=== PATIENT | male | born 1960 | race Caucasian/White ===

== ENCOUNTER 2019-05-27 20:06 | Inpatient (IN) | payer BC ==
[~2019-05-27] VITALS: Ht 172.7 cm; Wt 91.6 kg
[2019-05-27 21:08] VITALS: Ht 172.7 cm; Wt 91.6 kg
--- NOTE | 2019-05-27 22:09 | NUR ---
PT. PRESENTS TO ER C/O RLQ PAIN, 12/18, PT. STS HE CANNOT DESCRIBE PAIN, "IT JUST HURTS" WITH N/V/D FOR 1 WEEK, PT. LAYING IN BED, AAOX4, CALM, SLOW TO ANSWER, BROTHER STS HE HAS HAD BRAIN SURGERY 2 YRS, REMOVAL OF TUMOR ON RIGHT TEMPORAL LOBE, BROTHER ALSO STS, PT. HAS HAD INTERMITENT RECTAL BLEEDING FOR 1 MONTH, PT. HAS A SCHEDULED COLONOSCOPY THIS MONTH, PT. DENIES RECTAL BLEEDING AT THIS TIME, PT. PLACED ON CM + PULSE OX, REPOSITIONED FOR COMFORT, SAFETY PRECAUTIONS IN PLACE, WILL MONITOR.
[2019-05-27 22:33] LABS: BASOPHIL % 0.5 % (0-2); PLATELET COUNT 306 x10^3mcL (130-400)
[2019-05-27 22:36] LABS: RED CELL DISTRIBUTION WIDTH 15.8 % (11.5-14.5)
[2019-05-27 22:43] LABS: CALCIUM 9.1 mg/dL (8.5-10.1); CARBON DIOXIDE 26.6 mmol/L (21-32); CHLORIDE SERUM 92 mmol/L (98-107); CREATININE SERUM 1.2 mg/dL (0.7-1.3); GFR1 > 60 mL/min; GLUCOSE SERUM 312 mg/dL (74-106); POTASSIUM SERUM 3.4 mmol/L (3.5-5.1); SODIUM SERUM 129 mmol/L (136-145)
[2019-05-27 22:47] LABS: ALKALINE PHOSPHATASE 208 U/L (46-116); ALT/SGPT 76 U/L (16-63); AST/SGOT 79 U/L (15-37); BILIRUBIN TOTAL 2.96 mg/dL (0.20-1.00); TOTAL PROTEIN, SERUM 7.1 g/dL (6.4-8.2)
--- NOTE | 2019-05-27 22:54 | NUR ---
MEDICATED PT. PER MD ORDER, PT. TOLERATED WELL, SEE EMAR
--- NOTE | 2019-05-27 23:17 | NUR ---
LAB AT BEDSIDE
--- NOTE | 2019-05-28 00:24 | NUR ---
PT. LAYING IN BED, AAOX4, SLOW TO ANSWER, NO ACUTE DISTRESS NOTED, REPOSITIONED PT FOR COMFORT, STS HE NO LONGER HAS PAIN 0/10, MEDICATION HELPED, PENDING RESULTS, VSS, WILL MONITOR
--- NOTE | 2019-05-28 01:00 | NUR ---
PT TAKEN TO CT.
--- NOTE | 2019-05-28 01:15 | NUR ---
PT. RETURNED FROM CT
--- NOTE | 2019-05-28 02:32 | NUR ---
REPORT GIVEN TO BRITTANY CARMONA, UPDATED PT. WITH POC,
[2019-05-28 03:18] VITALS: BP 94/69
--- NOTE | 2019-05-28 03:37 | NUR ---
ADMITTED A 59 YEARS OLD MALE AWAKE, ALERT AND ORIENTED, CAME IN VIA GURNEY ACCOMPANIED BY ER STAFF WITH C/O GENRALIZED BODY WEAKNESS, NAUSEA AND VOMITING, RIGHT LOWER QUADRANT PAIN. MEDICATED IN ER WITH TORADOL 15MG IVP AND ZOFRAN 4MG IVP. PER PATIENT PAIN LEVEL NOW IS 0/10 AFTER MEDS GIVEN. KEPT IN COMFORT AND ORIENTED TO ROOM AND DEVICES. TELE# 1 [address] 110 ON MONITOR, DENIES CHESTPAIN. ABDOMEN ROUND ,FIRM AND TENDER WITH ACTIVE BS, PITTING EDEMA 1+ NOTED TO BLE. IV TO LAC INTACT AND PATENT. WITH ADMISSION ORDERS TO CARRY OUT. WILL CONTINUE TO MONITOR. CALL LIGHT WITHIN REACH.
[2019-05-28 04:20] LABS: FREE T4 0.82 ng/dL (0.76-1.46); FREE THYROXINE INDEX 1.9 ug/dL (1.4-4.5); T3 TOTAL 0.74 ng/mL
--- NOTE | 2019-05-28 07:45 | NUR ---
PATIENT BACK FROM BATHROOM, NO COMPLAIN. WALK W/ SLWO STEADY GAIT NOTED. NO REPORT OF PAIN AT THIS TIME. PT REPORT HAS BM X1 AFTER LACTULOSE GIVEN PREVIOUS SHIFT. REMIND PATIENT TO VOID IN CUP FOR URINE SPECIMENS. PT VERBALIZE UNDERSTAND. CALL LIGHT WITHIN REACH. TELE #[address] 120 NOTED. CONT TO MONITOR.
[2019-05-28 08:23] VITALS: BP 98/65
[2019-05-28 08:29] LABS: BASOPHIL % 0.4 % (0-2); PLATELET COUNT 311 x10^3mcL (130-400)
[2019-05-28 08:32] LABS: RED CELL DISTRIBUTION WIDTH 15.7 % (11.5-14.5)
--- NOTE | 2019-05-28 09:05 | NUR ---
PATIENT IS LAYING IN BED ,COMFORTABLE, AWAKE AND ALERT. EXPLAINED TO PATIENT HIS MORNING MEDICATION. LACTULOSE GIVEN. PATIENT TOLERATED. CALL LIGHT IS IN PLACE AND WITHIN REACH. IV IS INTACT AND PATENT.
[2019-05-28 09:48] LABS: CALCIUM 9.1 mg/dL (8.5-10.1); CARBON DIOXIDE 25.9 mmol/L (21-32); CHLORIDE SERUM 95 mmol/L (98-107); CREATININE SERUM 1.3 mg/dL (0.7-1.3); GFR1 > 60 mL/min; GLUCOSE SERUM 197 mg/dL (74-106); MAGNESIUM 1.6 mg/dL (1.8-2.4); PHOSPHOROUS 2.7 mg/dL (2.5-4.9); POTASSIUM SERUM 4.2 mmol/L (3.5-5.1); SODIUM SERUM 133 mmol/L (136-145)
--- NOTE | 2019-05-28 11:29 | NUR ---
SPOKE US TECH CAT REGARD TO US ABDOMEN IS COMPLETED BUT WAITING FOR RESULTS.
[2019-05-28 11:45] VITALS: BP 100/66
--- NOTE | 2019-05-28 12:10 | NUR ---
PER PT PATIENT WALKING ABOUT 100 FEET MIN ASSIST W/ STEADY GAIT, WILL CONT TX X3. PATIENT RESTING COMFORTABLE IN BED AFTER PT. CALL LIGHT WITHIN REACH.
--- NOTE | 2019-05-28 13:40 | NUR ---
MAGNESIUM TABLET GIVEN. PATIENT HAS NO SUBJECTIVE COMPLAINTS. EDUCATED ON MAGNESIUM REPLACEMENT. MG 1.6. REPLACED NEW BAG OF IV FLUID. NEED ATTENDED. CALL LIGHT WITHIN REACH.
--- NOTE | 2019-05-28 14:18 | NUR ---
SPOKE TO DR. CAPPS PATIENT'S URINE OUTPUT 150ML ALO COLOR AND BLADDER SACN SHOWS 36ML PATIENT DENIES PAIN OR PRESSURES WHEN PRESS ON BLADDER, PER DR. CAPPS WILL SEE PATIENT AND ASSESS.
--- NOTE | 2019-05-28 15:50 | NUR ---
PATIENT DECIDED TO TAKE MIRALAX, SENNOKOT AND LACTULOSE. MEDICATIONS GIVEN . PATIENT TOLERATED WELL. NEEDS MET. 2 GUARDS AT BEDSIDE. CALL LIGHT WITHIN REACH.
[2019-05-28 16:14] VITALS: BP 102/66
--- NOTE | 2019-05-28 16:27 | NUR ---
INFORMED PATIENT ON PROCEDURE, REASON FOR THOMAS CATHETERIZATION. CATHETERIZATION DONE UNDER STERILE TECHNIQUE. PATIENT TOLERATED WELL. CATHETER SECURE AND TO GRAVITY DRAIN. URINE SPECIMEN COLLECTED, DARK ALO ABOUT 60CC NOTED AND SENT TO LAB FOR UA AND UDS. CALL LIGHT WITHIN REACH. NEEDS MET.
[2019-05-28 16:35] LABS: microscopic required? YES; urine erythrocyte NEGATIVE (NEGATIVE)
[2019-05-28 16:44] LABS: AMPHETAMINE QUAL UR NONE DETECTED (See below)
--- NOTE | 2019-05-28 18:42 | NUR ---
PATIENT AWAKE SITTING UP IN BED EATING. BROTHER IN BEDSIDE UPDATED ABOUT ULTRASOUND.
--- NOTE | 2019-05-28 18:47 | NUR ---
SPOKE TO DR. CAPPS REGARD TO URINE OUTPUT 210ML DARK ALO AND LEFT THOMAS CATHETER TO MONITOR URINE OUTPUT, PER DR. JEFRY EUGENE TO KEEP IT IN.
--- NOTE | 2019-05-28 19:30 | NUR ---
PT RECEIVED FROM DAY NURSE. PT RESTING IN BED AT THIS TIME. DENIES PAIN OR DISCOMFORT. A/O X4, SLOW TO RESPOND. TELE 1, NSR. DENIES CP, NV, DIZZINESS, AND PALPATATIONS. PALPABLE PULSES, NO EDEMA NOTED AT THIS TIME. BREATHING E/U ON RA. DENIES SOB. ABD FIRM AND DISTENDED, DENIES PAIN TO PALPATION. THOMAS IN PLACE, DRAINING TO GRAVITY. ALO COLORED URINE NOTED. GENERALIZED WEAKNESS, AMBULATORY AT BASELINE. IV IT LAC INTACT AND INFUSING. BED AT LOWEST POSITION. CALL LIGHT WITHIN REACH. WILL CONTINUE TO MONITOR.
[2019-05-28 19:43] LABS: CALCIUM 8.8 mg/dL (8.5-10.1); CARBON DIOXIDE 27.4 mmol/L (21-32); CHLORIDE SERUM 95 mmol/L (98-107); CREATININE SERUM 1.1 mg/dL (0.7-1.3); GFR1 > 60 mL/min; GLUCOSE SERUM 228 mg/dL (74-106); POTASSIUM SERUM 3.5 mmol/L (3.5-5.1); SODIUM SERUM 131 mmol/L (136-145)
[2019-05-28 21:17] VITALS: BP 95/76
--- NOTE | 2019-05-29 | NUR ---
PT RESTING IN BED AT THIS TIME. NO S/S OF PAIN OR DISTRESS NOTED. BREATHING E/U ON RA. NO SIGNS OF ACUTE DISTRESS AT THIS TIME. BED AT LOWEST POSITION. CALL LIGHT WITHIN REACH. WILL CONTINUE TO MONITOR.
[2019-05-29 05:28] VITALS: BP 108/69
--- NOTE | 2019-05-29 06:00 | NUR ---
PT RESTING IN BED AT THIS TIME. DENIES PAIN OR DISCOMFORT. BREATHING E/U ON RA. NO SIGNS OF ACUTE DISTRESS NOTED AT THIS TIME. ALL NEEDS AND CONCERNS ADDRESSED THIS SHIFT. WILL ENDORSE TO DAY NURSE.
[2019-05-29 06:52] LABS: BASOPHIL % 0.1 % (0-2); PLATELET COUNT 281 x10^3mcL (130-400)
--- NOTE | 2019-05-29 07:00 | NUR ---
RECEIVED PT FROM INJECTION MOULDING MACHINE OPERATOR NURSE. PT RESTING IN BED, AOX4, RESP E/U ON RA. C/O SLIGHT DISCOMFORT TO THOMAS CATH SITE. CATH IN PLACE W/ NO BLEEDING, SWELLING OR REDNESS TO SITE, EXPLAINED TO PT NOT TO TUG ON LINE AND SOME PRESSURE IS EXPECTED WHILE CATH IS IN PLACE. PT UNDERSTOOD. ON TELE 1 SHOWING NSR, HR: 98. IV TO LAC W/ NO SIGNS OF INFILTRATION, IVF INFUSING WELL. BED IN LOWEST POSITION AND CALL LIGHT WITHIN REACH. WILL CONTINUE TO MONITOR.
[2019-05-29 07:15] LABS: CALCIUM 9.1 mg/dL (8.5-10.1); CARBON DIOXIDE 29.5 mmol/L (21-32); CHLORIDE SERUM 101 mmol/L (98-107); CREATININE SERUM 1.1 mg/dL (0.7-1.3); GFR1 > 60 mL/min; GLUCOSE SERUM 226 mg/dL (74-106); MAGNESIUM 1.9 mg/dL (1.8-2.4); POTASSIUM SERUM 4.4 mmol/L (3.5-5.1); SODIUM SERUM 135 mmol/L (136-145)
[2019-05-29 08:18] LABS: RED CELL DISTRIBUTION WIDTH 15.9 % (11.5-14.5)
[2019-05-29 09:32] VITALS: BP 114/77
--- NOTE | 2019-05-29 12:26 | NUR ---
PT THOMAS CATHETER REMOVED AT THIS TIME ORDERED PER MD. NO PENILE BLEEDING OR SCROTAL ERYTHEMA/EDEMA NOTED, PT DENIES PAIN. NO ACUTE DISTRESS NOTED. BED IN LOWEST POSITION AND CALL LIGHT WITHIN REACH. WILL CONTINUE TO MONITOR.
[2019-05-29 12:52] VITALS: BP 113/80
--- NOTE | 2019-05-29 13:21 | NUR ---
Initial Nutrition Assessment: Dx: generalized weakness x 2 weeks ago, hepatic encephalopathy PMHx: HTN, DM, hypercholesterolemia, r-frontal meningioma s/p resection PSHx: brain tumor removal from rt temporal area Labs: (05/29) Na 135 L, K 4.4, Glu 226 H, BUN 6.0, Cr 1.1, A1c 8.1 H, H/H 13.3/39 Meds: Colace, klor-con, lactulose, magOx, norco, sodium chl 0.9%, Tylenol, Zofran Diet: CCH PO intake since admission: (05/28) B: 70%, L: 100%, D: 100%; overall av%; likely adequate. Ht: 172.72 cm / 68 inches / 5'8" Wt: 91.626 kg / 201 pounds BMI: 30.7 kg/m2, obesity class 1 IBW: 154 pounds / 70 kg %IBW: 130% AdjBW: 166 pounds / 75 kg UBW: 225 pounds Age: 59 Food Allergies: No Known Food Allergies Skin: Intact Damon: 18 Edema: None GI: abd round firm, distended with active BS. c/o rt lower quadrant pain, N/V. Last BM: 05/28/19, formed RD Note (05/29): Per H&P, Pt reports not eating well and decreased bowel movement x 1 week. Per MD Progress Note, CT abd shows diverticulosis with large fatty liver. RDN visited with Pt. Pt was awake, alert, and in good spirits. Pt answered all of RDN's questions with extensive explanation. RDN answered all of Pt's questions to Pt's satisfaction. See below for detail of DM diet education provided. Problem with: N/V/D/C: None Problems with: Chewing: No Swallowing: No Current appetite: Good Recent wt change: None Vitamin/Supplement use: multi-vitamin from [employer] Special diet at home: Regular Physical activity: ambulates w/o home oxygen. Nutrition education given (specify specific nutrition education and handout given): Pt declined education handouts, but accepted verbal education/discussion with RDN. RDN educated Pt on diabetic diet, including carbohydrate sources with protein sources, carb counting, and diabetic MyPlate method. Pt reports that his brother has DM diet education handouts and classes listings which he will discuss with his brother to attend. Pt stopped consuming regular sugar and has been using Stevia and Splenda. He usually eats steak, eggs, 2 tortillas/day (if using flour) or 3 tortillas/day (if using corn). He usually snacks on tortilla chips. He used to eat salads, he did so for three weeks but then stopped because he got tired of them and was also not full from just the salad; RDN instructed Pt on DM My Plate method, encouraged plate vegetables, plate protein (like steak), plate carb (tortilla), encouraged include all food groups; Pt nods and verbalizes understanding. Food-drug interactions? N/A Education given? N/A Estimated Nutritional Needs Based on body weight (75 kg AdjBW) Energy: 2913-1953 kcal/day (20-25 kcal/kg for non-critical obesity class 1) Protein: 45-60 g/day (0.6-0.8 g/kg for hepatic encephalopathy) Fluid: 7146-0199 mL/day (1 mL/kcal) Nutrition Diagnosis: 1. Impaired nutrient utilization related to endocrine dysfunction as evidenced by Glu 226 (H), A1c 8.1 (H) on 05/29/18. Intervention 1. Continue on CCHO diet as tolerated. Monitor/Evaluate Goal: PO intake at least 75% of estimated needs Monitor: PO intake, Labs, GI function F/U in 3-5 days as moderate risk (06/01-06/03)
--- NOTE | 2019-05-29 13:21 | NUR ---
Intervention 1. Continue on CCHO diet as tolerated.
[2019-05-29 17:09] VITALS: BP 147/69
--- NOTE | 2019-05-29 18:00 | NUR ---
PT IN BED SLEEPING, AROUSABLE, RESP E/U ON RA. NO SIGNS OF ACUTE DISTRESS NOTED. SALINE LOCKED TO LAC W/ NO ERYTHEMA OR EDEMA. BED IN LOWEST POSITION AND CALL LIGHT WITHIN REACH. WILL ENDORSE TO ONCOMING NURSE.
--- NOTE | 2019-05-29 19:05 | NUR ---
PT RECEIVED A/O X4, ABLE TO MAKE NEEDS KNOWN, SLOW TO RESPOND. TELE #1, NSR, PT DENIES ANY CP/PRESSURE. PULSES PALPABLE, NO EDEMA PRESENT. BREATHING IS EVEN AND UNLABORED ON RA, DENIES SOB, NO RESP DISTRESS NOTED. ABD SOFT AND DISTENDED, BOWEL TONES ACTIVE, DENIES N/V. VOIDS FREELY, BRP. GENERALIZED WEAKNESS, AMBULATORY WITH STEADY GAIT. SKIN IS WARM AND DRY, INTACT. PT DENIES HAVING ANY PAIN AT THIS TIME. SL TO LAC, PATENT AND INTACT, SITE WNL. NO ACUTE DISTRESS OBSERVED. BED IN LOWEST SETTING, SIDE RAILS UP X2, CALL LIGHT WITHIN REACH. WILL CONT TO MONITOR.
[2019-05-29 21:11] VITALS: BP 121/81
[2019-05-30 06:14] VITALS: BP 110/82
[2019-05-30 06:28] LABS: BASOPHIL % 0.1 % (0-2); PLATELET COUNT 265 x10^3mcL (130-400)
--- NOTE | 2019-05-30 06:32 | NUR ---
PT SLEPT WELL THROUGHOUT THE EVENING. BREATHING IS EVEN AND UNLABORED, NO RESP DISTRESS NOTED. PT DENIES HAVING ANY PAIN AT THIS TIME. NO ACUTE CHANGES ENCOUNTERED DURING SHIFT. ALL NEEDS MET AND ANTICIPATED. SL TO LAC, INTACT. CALL LIGHT WITHIN REACH. WILL ENDORSE CARE TO AM NURSE.
[2019-05-30 06:42] LABS: ALKALINE PHOSPHATASE 195 U/L (46-116); ALT/SGPT 68 U/L (16-63); AST/SGOT 113 U/L (15-37); BILIRUBIN TOTAL 2.7 mg/dL (0.20-1.00); CARBON DIOXIDE 25.6 mmol/L (21-32); CHLORIDE SERUM 106 mmol/L (98-107); GFR1 > 60 mL/min; GLUCOSE SERUM 167 mg/dL (74-106); MAGNESIUM 1.7 mg/dL (1.8-2.4); POTASSIUM SERUM 4.2 mmol/L (3.5-5.1); SODIUM SERUM 142 mmol/L (136-145); TOTAL PROTEIN, SERUM 6.7 g/dL (6.4-8.2)
[2019-05-30 06:43] LABS: ALBUMIN 2.9 g/dL (3.4-5.0)
--- NOTE | 2019-05-30 07:40 | NUR ---
RECEIVED PT FROM EXPANSION JOINT BUILDER RN. Tasha/NADINE. TELE#1. DENIES CHEST PAIN/PRESSURE. RESPIRATIONS EQUAL AND UNLABORED ON RA. [place] SOB. PT DENIES ANY PAIN AT THIS TIME. ABDOMEN DISTENDED BUT SOFT, PT DENIES ANY ABDOMINAL PAIN OR N/V. AMBULATES PER BRP, STEADY GAIT. IV TO LAC SALINE LOCKED. NO REDNESS OR SWELLING NOTED. WILL CONTINUE TO MONITOR. CALL LIGHT IN REACH. BED IN LOWEST POSITION.
--- NOTE | 2019-05-30 07:41 | NUR ---
PT IN NO ACUTE DISTRESS. CONT OF CARE ENDORSED TO AM NURSE. ALL QUESTIONS AND CONCERNS ADDRESSED.
[2019-05-30 07:48] LABS: RED CELL DISTRIBUTION WIDTH 16.7 % (11.5-14.5)
[2019-05-30 08:16] VITALS: BP 99/59
--- NOTE | 2019-05-30 08:33 | NUR ---
PT SITTING UP IN BED. NO ACUTE RESP DISTRESS NOTED ON RA. PT DENIES ANY ABDOMINAL PAIN AT THIS TIME. PT DENIES ANY N/V. GIVEN PO MEDS. TOLERATED WELL. IV TO LAC SALINE LOCKED. NO REDNESS OR SWELLING NOTED. WILL CONTINUE TO MONITOR. CALL LIGHT IN REACH. BED IN LOWEST POSITION.
--- NOTE | 2019-05-30 10:13 | NUR ---
PT SITTING UP IN BED. DR. JESSCIA AT BEDSIDE EXPLAINING TO PT HE IS CLEARED FOR DISCHARGE. IV TO LAC INFUSING MAGNESIUM ORDERED. PT CALLED BROTHER AND STATES BROTHER WILL PICK HIM UP SOON. WILL CONTINUE TO MONITOR. CALL LIGHT IN REACH. BED IN LOWEST POSITION.
[2019-05-30] MEDS ORDERED: FLO4 PO (11:27)
[2019-05-30] MEDS ORDERED: SIMETHICONE80 MG CH (11:28)
[2019-05-30] MEDS ORDERED: LAC30L PO (11:28)
[2019-05-30] MEDS ORDERED: GLU850 PO (11:29)
[2019-05-30] MEDS ORDERED: GLU5 PO (11:29)
[2019-05-30 12:04] VITALS: BP 99/59
--- NOTE | 2019-05-30 12:45 | NUR ---
PT SITTING UP IN BED. BROTHWHIT EMELI AT BEDSIDE. PT GIVEN DISCHARGE INSTRUCTIONS. PT ENCOURAGED TO CONTINUE ACTIVITY TOLERATED. PT ENCOURAGED TO FOLLOW A LOW SODIUM AND LOW CARBOHYDRATE DIET AND TO TRY TO EXCERCISE AT LEAST 30 MINUTES A DAY. PT ASKING TO HAVE EDUCATIONAL REFERENCE WITH WHAT DIET TO HAVE, PT PROVIDED WITH PRINT OF DIABETIC DIET TO FOLLOW. PT ENCOURAGED TO STOP DRINKING ALCOHOL AND TO FOLLOW UP WITH PCP WITHIN 1 WEEK OF DISCHARGE. PT VERBALIZED UNDERSTANDING. PT ENCOURAGED TO ASKING PCP FOR A REFERRAL TO LIVER SPECIALIST TO MONITOR THE PT. PT INFORMED NEW PRESCRIPTIONS WERE ELECTRONICALLY SENT TO [facility] IN [place]. PT VERBALIZED UNDERSTANDING. IV TO LAC REMOVED CATHETER INTACT. NO REDNESS OR SWELLING NOTED. TELE#1 RETURNED TO MANAGER TECHNICAL SUPPORT [place]. PT TAKEN OFF FLOOR VIA WHEELCHAIR. NO PROBLEMS ENCOUNTERED. ALL QUESTIONS AND CONCERNS ADDRESSED.
== END 2019-05-30 13:05 | disposition home or self-care (01) | DRG 442 ==
LOC: ED 20:06 → DU 05-28 02:02
PROVIDERS: Student in an Organized Health Care Education/Training Program; ADMIT Internal Medicine
DX: K72.90 Hepatic failure, unspecified without coma (principal); E87.1 Hypo-osmolality and hyponatremia; E44.1 Mild protein-calorie malnutrition; K74.60 Unspecified cirrhosis of liver; E83.42 Hypomagnesemia; E87.6 Hypokalemia; E87.8 Other disorders of electrolyte and fluid balance, not elsewhere classified; E11.65 Type 2 diabetes mellitus with hyperglycemia; R74.0 Nonspecific elevation of levels of transaminase and lactic acid dehydrogenase [LDH]; E78.00 Pure hypercholesterolemia, unspecified; Z87.891 Personal history of nicotine dependence; Z68.30 Body mass index [BMI] 30.0-30.9, adult; Z79.84 Long term (current) use of oral hypoglycemic drugs
CPT/HCPCS: 82962; 84439; 97110-GP; 97116-GP; G0378; G0480; J1885; J2405; J3475; J7030; Q0092